=== PATIENT | male | born 1970 | race Caucasian/White ===

== ENCOUNTER 2019-08-28 11:07 | Emergency (ER) | payer MEDICARE ==
[2019-08-28 11:18] VITALS: BP 146/89; PULSE 108; RESP 17; TEMP 98.2
--- NOTE | 2019-08-28 11:59 | ED ---
General Adult HPI - General Chief complaint: Extremity Injury, Lower Stated complaint: rt ankle problem, loose screw Time Seen by Provider: 08/28/19 11:33 Source: patient, RN notes reviewed Mode of arrival: ambulatory Limitations: no limitations - History of Present Illness Initial comments: 49-year-old male presents for possible loose screw of the right ankle. Patient had open reduction and internal fixation of the right ankle several years ago by another institution. States that he noticed a hard area on his right lateral ankle that he thought his lateral screw. Patient denies any ankle pain. Denies any other complaints. Patient has no other complaints at this time including shortness of breath, chest pain, abdominal pain, nausea or vomiting, headache, or visual changes. - Related Data Home Medications Medication Instructions Recorded Confirmed Citalopram Hydrobromide [CeleXA] 40 mg PO HS 08/28/19 08/28/19 Cyclobenzaprine [Flexeril] 5 mg PO HS 08/28/19 08/28/19 Allergies Allergy/AdvReac Type Severity Reaction Status Date / Time Iodinated Contrast Media Allergy Swelling Verified 08/28/19 11:29 Review of Systems ROS Statement: Those systems with pertinent positive or pertinent negative responses have been documented in the HPI. ROS Other: All systems not noted in ROS Statement are negative. Past Medical History Past Medical History: No Reported History History of Any Multi-Drug Resistant Organisms: None Reported Past Surgical History: Orthopedic Surgery Additional Past Surgical History / Comment(s): left wrist surgery, right ankle surgery, right knee replacement Past Psychological History: No Psychological Hx Reported Smoking Status: Current every day smoker Past Alcohol Use History: None Reported Past Drug Use History: None Reported General Exam Limitations: no limitations General appearance: alert, in no apparent distress Head exam: Present: atraumatic, normocephalic, normal inspection Eye exam: Present: normal appearance, PERRL, EOMI. Absent: scleral icterus, conjunctival injection, periorbital swelling ENT exam: Present: normal exam, mucous membranes moist Neck exam: Present: normal inspection. Absent: tenderness, meningismus, lymphadenopathy Respiratory exam: Present: normal lung sounds bilaterally. Absent: respiratory distress, wheezes, rales, rhonchi, stridor Cardiovascular Exam: Present: regular rate, normal rhythm, normal heart sounds. Absent: systolic murmur, diastolic murmur, rubs, gallop, clicks Extremities exam: Present: other (Full range motion of the leg ankle. Well appearing surgical scar, no erythema. There is a small 1 cm x 1 cm cyst of the right ankle. This is mobile. This is not a screw.) Course Vital Signs 08/28/19 11:15 Temperature 98.2 F Pulse Rate 108 H Respiratory 17 Rate Blood Pressure 146/89 O2 Sat by Pulse 98 Oximetry Medical Decision Making - Medical Decision Making 49-year-old presents for possible screw coming out of right ankle after a surgery several years ago. On examination patient has a small cyst on the lateral right ankle. This is freely mobile and is not fixated. This is not a cyst. It does not appear infected. There is no erythema or drainage. No fluctuance. There is no abscess. At this time patient will follow up with primary care. He is relieved he will not be needing surgery to get the screw removed. He will return if he has any worsening symptoms. Disposition Clinical Impression: Cyst Disposition: HOME SELF-CARE Condition: Good Instructions (If sedation given, give patient instructions): Cyst (ED) Additional Instructions: Please follow up with primary care in 1-2 days. Return to the emergency department if you have any worsening symptoms. Is patient prescribed a controlled substance at d/c from ED?: No Referrals: Marcell Black MD [REFERRING] - 1-2 days Time of Disposition: 11:59
== END 2019-08-28 12:34 | disposition home or self-care (01) ==
LOC: EC 11:07
DX: M25.871 Other specified joint disorders, right ankle and foot (principal); F17.200 Nicotine dependence, unspecified, uncomplicated; Z79.899 Other long term (current) drug therapy; Z91.041 Radiographic dye allergy status; Z96.651 Presence of right artificial knee joint
CPT/HCPCS: 99282

== ENCOUNTER → 2021-02-12 | Outpatient (CLI) | payer MEDICARE ==
--- NOTE | 2021-02-12 15:56 | XR ---
EXAMINATION TYPE: XR KUB DATE OF EXAM: 02/12/2021 COMPARISON: NONE HISTORY: Pain TECHNIQUE: Single supine KUB image of the abdomen is obtained FINDINGS: Small bowel demonstrates no evidence for dilatation or air fluid levels. Gas and fecal material is seen in non-distended colon. No convincing evidence for pneumoperitoneum. No unusual calcifications. The lung bases are clear. The osseous structures are intact. IMPRESSION: 1. Overall nonobstructive bowel gas pattern.
== END | disposition home or self-care (01) ==
LOC: RADXRMAIN 15:26
PROVIDERS: ATTEND Urology
DX: R10.9 Unspecified abdominal pain (principal)
CPT/HCPCS: 74018